=== PATIENT | female | born 1965 | race Caucasian/White ===

== ENCOUNTER 2023-01-09 09:09 | Outpatient (CLI) | payer MEDICARE, MEDICAID | END 2023-01-09 09:10 | disposition home or self-care (01) | LOC: CSHMAMMO 09:09 | PROVIDERS: ATTEND Family Medicine | DX: Z12.31 Encounter for screening mammogram for malignant neoplasm of breast (principal); Z13.820 Encounter for screening for osteoporosis; M85.851 Other specified disorders of bone density and structure, right thigh; M85.852 Other specified disorders of bone density and structure, left thigh | CPT/HCPCS: 77063; 77067; 77080 ==

== ENCOUNTER 2023-01-17 08:55 | Outpatient (CLI) | payer MEDICARE, MEDICAID | END 2023-01-17 08:56 | disposition home or self-care (01) | LOC: CSHULT 08:55 | PROVIDERS: ATTEND Family Medicine | DX: N63.24 Unspecified lump in the left breast, lower inner quadrant (principal) ==

== ENCOUNTER 2023-08-02 11:51 | Outpatient (CLI) | payer MEDICARE, MEDICAID | END 2023-08-02 11:52 | disposition home or self-care (01) | LOC: CSHRAD 11:51 | PROVIDERS: ATTEND Family Medicine | DX: M79.671 Pain in right foot (principal); M19.071 Primary osteoarthritis, right ankle and foot; Z87.81 Personal history of (healed) traumatic fracture ==

== ENCOUNTER 2024-02-14 11:09 | Outpatient (CLI) | payer OTHER | END 2024-02-14 11:10 | disposition home or self-care (01) | LOC: CSHMAMMO 11:09 | PROVIDERS: ATTEND Family Medicine | DX: Z12.31 Encounter for screening mammogram for malignant neoplasm of breast (principal) | CPT/HCPCS: 77063; 77067 ==

== ENCOUNTER 2025-09-22 07:29 | Emergency (ER) | payer OTHER, MEDICAID ==
[2025-09-22] MEDS ORDERED: Famotidine 20 MG TAB ONE (07:55)
[2025-09-22] MEDS ORDERED: Acetaminophen 500 MG TAB ONE (07:58)
[2025-09-22] MEDS ORDERED: Albuterol 2.5 MG (3 mL) NEB ONE (08:44)
[2025-09-22 09:01] LABS: Hematocrit 45.4 % (34.9-44.5); Hemoglobin 14.9 g/dL (12.0-15.5); Mean Corpuscular Hemoglobin 29.9 pg (27.0-33.0); Mean Corpuscular Volume 91.2 fL (81.6-98.3); Platelet Count 215 10x3/uL (150-450); Red Blood Cell (RBC) Count 4.98 10x6/uL (3.90-5.03); White Blood Cell (WBC) Count 4.69 10x3/uL (3.5-10.5)
[2025-09-22 09:17] LABS: ALT (SGPT) 25 U/L (Less than 34); AST (SGOT) 68 U/L (11-34); Albumin 3.9 g/dL (3.1-4.5); Alkaline Phosphatase 122 U/L (40-110); Anion Gap 15 mmol/L (10-20); BUN (Urea Nitrogen) 11 mg/dL (9.8-20.1); Bilirubin, Total 0.3 mg/dL (0.3-1.2); Calc. Creatinine Clearance 0 mL/min (70-130); Calcium 8.9 mg/dL (7.8-10.44); Carbon Dioxide 23 mmol/L (22-29); Chloride 101 mmol/L (98-107); Globulin 2.8 g/dL (2.4-3.5); Glucose 131 mg/dL (70-105); Potassium 3.7 mmol/L (3.5-5.1); Sodium 135 mmol/L (136-145)
[2025-09-22 09:18] LABS: Actual Bicarbonate (HCO3a) 20.1 mEq/L (22-28); Analyzer IN Cardio CS ER; Base Excess (BEa) -1.1 mEq/L (-2.0 to +3.0); CO2 Tension 26.0 mmHg (35.0-45.0); Calcium, Ionized (arterial) 1.14 mmol/L (1.12-1.30); Critical Notified By: Udy, RRT; Hematocrit-ABG 47 % (36.0-47.0); Hemoglobin (Hb) 16.0 g/dL (12.0-16.0); O2 Tension (PaO2), arterial 71.0 mmHg (80.0-100.0); Potassium - ABG Lab 3.02 mmol/L (3.70-5.30); Puncture Site Right Radial artery; RapidComm Collect By Udy, RRT; pH, Arterial 7.507 (7.35-7.45)
[2025-09-22 09:21] LABS: Troponin I Less than 0.010 ng/mL (< 0.028)
[2025-09-22 10:08] LABS: MDiff Complete? YES; Platelet Adequacy Comment Appears Adequate; RBC Morphology Within Normal Limits
== END 2025-09-22 10:16 | disposition home or self-care (01) ==
LOC: CSHERS 07:29
DX: J11.1 Influenza due to unidentified influenza virus with other respiratory manifestations (principal); R59.1 Generalized enlarged lymph nodes; K44.9 Diaphragmatic hernia without obstruction or gangrene; I10 Essential (primary) hypertension
CPT/HCPCS: 36600; 71250; 80053; 82805; 83880; 84484; 85025; 87428; 93005; 94640; Q0162; 36415; J7611